=== PATIENT | male | born 1945 | race Caucasian/White ===

== ENCOUNTER 2021-03-30 10:56 | Emergency (ER) | payer MEDICARE, SELFPAY ==
--- NOTE | ~2021-03-30 | XR_ITS ---
EXAMINATION: XR SACROILIAC JOINTS CLINICAL INFORMATION: Left sacroiliac joint pain COMPARISON: None TECHNIQUE: 3 views of the sacroiliac joints FINDINGS: Bones and soft tissues are normal. No fracture. Alignment is anatomic. Sacroiliac joint spaces are well-maintained without erosions or surrounding sclerosis. There are degenerative changes of the lower lumbar spine. XR/XR sacroiliac joint 1-2V IMPRESSION: Normal sacroiliac joints. Degenerative changes of the lower lumbar spine.
[2021-03-30 11:14] VITALS: BP 145/83; PULSE 61; RESP 20; TEMP 36; O2SAT 97; BMI 35.4
--- NOTE | 2021-03-30 12:00 | ED.BACK ---
HPI - Back Pain/Injury General Chief Complaint: Back Pain/Injury Stated Complaint: Back pain Time Seen by Provider: 03/30/21 11:29 Source: patient and family Mode of arrival: ambulatory Limitations: no limitations History of Present Illness HPI Narrative: 76 years old male came in for evaluation of Lower back pain for 10 days. Patient been having left-sided lower back pain for about 10 days, pain is constant every day, pain is worsening as the day goes on, no radiation of the pain, pain is dull aching just localized to the left lower back area, patient declined any injuries to the back or falls. Related Data Previous Rx's Medication Instructions Recorded cyclobenzaprine 10 mg tablet 10 mg PO TID PRN #14 tab 03/30/21 ibuprofen 800 mg tablet 800 mg PO TID PRN #20 tab 03/30/21 Allergies Allergy/AdvReac Type Severity Reaction Status Date / Time No Known Allergies Allergy Verified 03/30/21 11:20 Review of Systems Review of Systems: All other systems are reviewed and are negative Constitutional: Reports as per HPI and Reports no additional constitutional complaints Eyes: Reports as per HPI and Reports no additional eye complaints Reports system reviewed and no additional complaints, except as documented Cardiovascular: Reports as per HPI and Reports no additional cardiovascular complaints Respiratory: Reports as per HPI and Reports no additional respiratory complaints Gastrointestinal: Reports as per HPI and Reports no additional gastrointestinal complaints Genitourinary: Reports no additional female genitourinary complaints Musculoskeletal: Reports no additional musculoskeletal complaints Skin/Breast: Reports system reviewed and no additional complaints, except as docu Psychiatric: Reports no additional psychiatric complaints Endocrine: Reports no additional endocrine complaints Hematologic/Lymphatic: Reports no additional hematologic/lymphatic complaints Allergic/Immunologic: Reports no additional allergic/immunologic complaints Reports system reviewed and no additional complaints, except as documented and Reports Abnormal speech present [facility] Past Medical History Medical History FH: total knee replacement High cholesterol Hypertension Social History Social History Advance Directives: Yes Advance Directives Information Provided: Yes Advance Directives on File: No Physical Exam Vital Signs: Vital Signs: Last Vital Signs Temp 96.8 F 03/30/21 11:14 Pulse 61 03/30/21 11:14 Resp 20 03/30/21 11:14 BP 145/83 H 03/30/21 11:14 Pulse Ox 97 03/30/21 11:14 Body Mass Index 35.4 Vital signs have been reviewed as appeared to be correct. Blood pressure normal. Heart rate normal. Respiration rate normal. Temperature normal. Oxygen saturation normal. Appearance: Alert. Oriented X3. No acute distress. Head: Normal external exam. Normocephalic. Atraumatic. No Peter signs noted. No raccoon eyes noted Eyes: PERRLA. EOMI. Conjunctiva and sclera normal. Eyelids normal. ENT: TM's Normal. Pharynx normal. Uvula midline. Moist mucous membranes. No trismus noted. No drooling noted. No muffled voice noted. Neck: Normal inspection. Neck supple. FROM. No adenopathy. Thyroid Normal. No meningeal signs. No neck mass noted. CVS: Normal heart rate and rhythm. Heart sound normal. No murmurs noted. Pulses normal throughout. Respiratory: No respiratory distress. Painless inspiration. Breath sounds normal. No wheezes/rales/rhonchi noted. Chest nontender. No accessory muscle usage noted or decreased air movement noted. Abdomen: Soft and nontender. Bowel sounds normal in all 4 quadrants. No distention noted. No organomegaly noted. No visible injury noted. Back: No CVA tenderness. Full range of motion noted. Tenderness over left sacroiliac joint, no step-off, no deformity. Skin: Skin warm and dry. Normal skin color. Normal skin turgor. No rashes/lesions/lacerations noted. Extremities: No lower extremity edema. Extremities exhibit normal range of motion. Extremities nontender. Neuro: Oriented X 3. Cranial nerve exam: II-XII are grossly intact No motor deficit. No sensory deficit. Reflexes normal. MDM - Back Pain/Injury MDM Narrative Medical decision making narrative: Assessment and plan. Sacroiliac joint sprain. Heating pads, rest, NSAIDs. Imaging Data Sacroiliac joint x-ray: Radiologist's impression: Normal sacroiliac joints. Degenerative changes of the lower lumbar spine. Discharge Plan Discharge Clinical Impression: Sacroiliac (ligament) sprain Qualifiers: Encounter type: initial encounter Qualified Code(s): S33.6XXA - Sprain of sacroiliac joint, initial encounter Patient Disposition: Home, Self-Care Instructions: Lower Back Exercises (ED) Prescriptions: New cyclobenzaprine 10 mg tablet 10 mg PO TID PRN (Reason: muscle spasm) Qty: 14 RF: 0 ibuprofen 800 mg tablet 800 mg PO TID PRN (Reason: pain) Qty: 20 RF: 0 Referrals: Anoop Kidd MD [Primary Care Provider] - 2 days
== END 2021-03-30 12:49 | disposition home or self-care (01) ==
PROVIDERS: Emergency Provider Emergency Medicine; PCP Internal Medicine
DX: S33.6XXA Sprain of sacroiliac joint, initial encounter (principal); M54.50 Low back pain, unspecified; X58.XXXA Exposure to other specified factors, initial encounter; Y93.9 Activity, unspecified; Y92.9 Unspecified place or not applicable; Y99.9 Unspecified external cause status
CPT/HCPCS: 72200; 99283

== ENCOUNTER 2021-04-02 14:17 | Emergency (ER) | payer MEDICARE, SELFPAY ==
[2021-04-02 14:33] VITALS: BP 131/61; PULSE 79; RESP 18; TEMP 37.1; O2SAT 95; BMI 35.4
--- NOTE | 2021-04-02 17:05 | ED_ITS ---
HPI - Back Pain/Injury General Chief Complaint: Back Pain/Injury Stated Complaint: low back & lt leg pain Time Seen by Provider: 04/02/21 17:04 Source: patient Limitations: no limitations History of Present Illness HPI Narrative: Patient presents to the ER with worsening back pain on the left side radiating down left leg. Pain is 10/10 no relief with Motrin and muscle relaxer recently prescribed to him. Patient denies any recent trauma to the back symptoms began approximately 1 week ago while getting into the car. Patient states pain radiates down left leg denies any loss of bowel movements or urine incontinence. Symptoms are severe to moderate. Pain increases with position change in range of motion. Patient has a history of hypertension hypercholesterolemia. Patient denies any history of diabetes. Related Data Previous Rx's Medication Instructions Recorded cyclobenzaprine 10 mg tablet 10 mg PO TID PRN #14 tab 03/30/21 ibuprofen 800 mg tablet 800 mg PO TID PRN #20 tab 03/30/21 oxycodone-acetaminophen 5 mg-325 1 tab PO TID PRN #14 tab 04/02/21 mg tablet (Percocet) prednisone 20 mg tablet 40 mg PO DAILY 5 Days #10 tab 04/02/21 Allergies Allergy/AdvReac Type Severity Reaction Status Date / Time No Known Allergies Allergy Verified 04/02/21 14:33 Review of Systems Constitutional: Constitutional: Denies chills and Denies fever(s) Cardiovascular: Cardiovascular: Denies chest pain, Denies lightheadedness and Denies dyspnea Respiratory: Respiratory: Denies dyspnea Gastrointestinal: Gastrointestinal: Denies nausea and Denies vomiting Genitourinary: Comments: No loss of bowel movements or urine incontinence Musculoskeletal: Musculoskeletal: Reports abnormal gait and Reports back pain Comments: Left leg pain Neurologic: Reports abnormal gait [facility] Past Medical History Medical History FH: total knee replacement High cholesterol Hypertension Social History Social History Advance Directives: No Advance Directives Information Provided: No Physical Exam Vital Signs: Vital Signs: Last Vital Signs Temp 98.7 F 04/02/21 14:33 Pulse 66 04/02/21 17:35 Resp 18 04/02/21 17:35 BP 144/72 H 04/02/21 17:35 Pulse Ox 99 04/02/21 17:35 Body Mass Index 35.4 vital signs have been reviewed as normal and appeared to be correct. Blood pressure normal. Heart rate normal. Respiration rate normal. Temperature normal. Oxygen saturation normal. Appearance: Alert. Oriented X3. No acute distress. Head: Normal external exam. Normocephalic. Atraumatic. Eyes: PERRLA. EOMI ENT: Pharynx normal. Uvula midline. Moist mucous membranes. Neck: Soft full range of motion, no JVD CVS: Heart regular rate and rhythm no murmurs and rubs Respiratory: Breath sounds are clear to auscultation bilaterally. No accessory muscle use noted. Back: Decreased range of motion positive paraspinous tenderness of the lumbar spine positive straight leg raise on the left. Skin: Skin warm and dry. Normal skin color. Normal skin turgor. No rashes/lesions/lacerations noted. Extremities: No lower extremity edema. Extremities exhibit normal range of motion. Extremities nontender. Neuro: Oriented X 3. No motor deficit. No sensory deficit. Reflexes normal. Course Course Course Narrative: Lumbar strain Disc herniation Left leg sciatica Spinal stenosis MassPat Reviewed no issues noted 8 mg morphine IM 60 mg prednisone p.o. 6:08 p.m. Marked improvement of pain. Plan to discharge patient home on steroid course in different analgesic patient understands close follow-up with PCP with possible physical therapy referral and/or outpatient MRI. Discharge Plan Discharge Clinical Impression: Sciatica Qualifiers: Laterality: left Qualified Code(s): M54.32 - Sciatica, left side Strain of lumbar region Qualifiers: Encounter type: subsequent encounter Qualified Code(s): S39.012D - Strain of muscle, fascia and tendon of lower back, subsequent encounter Patient Disposition: Home, Self-Care Instructions: Sciatica (ED), Acute Low Back Pain (ED) Prescriptions: New prednisone 20 mg tablet 40 mg PO DAILY 5 Days Qty: 10 RF: 0 oxycodone-acetaminophen [Percocet] 5-325 mg tablet 1 tab PO TID PRN (Reason: pain) Qty: 14 RF: 0 No Action cyclobenzaprine 10 mg tablet 10 mg PO TID PRN (Reason: muscle spasm) Qty: 14 RF: 0 ibuprofen 800 mg tablet 800 mg PO TID PRN (Reason: pain) Qty: 20 RF: 0
[2021-04-02] MEDS: Morphine Sulfate 10 MG/ML CARTRIDGE 8 MG IM (17:27)
[2021-04-02] MEDS: predniSONE 20 MG TABLET 60 MG PO (17:28)
[2021-04-02 17:35] VITALS: BP 144/72; PULSE 66; RESP 18; O2SAT 99
[2021-04-02 18:26] VITALS: BP 117/73; PULSE 80; RESP 16; O2SAT 99
== END 2021-04-02 18:42 | disposition home or self-care (01) ==
PROVIDERS: Emergency Provider Emergency Medicine; PCP Internal Medicine
DX: M54.32 Sciatica, left side (principal); S39.012D Strain of muscle, fascia and tendon of lower back, subsequent encounter; X58.XXXD Exposure to other specified factors, subsequent encounter; I10 Essential (primary) hypertension
CPT/HCPCS: 96372; 99284; J2270

== ENCOUNTER 2021-04-07 10:31 | Emergency (ER) | payer MEDICARE, SELFPAY ==
--- NOTE | ~2021-04-07 | CT_ITS ---
EXAMINATION: CT LUMBAR SPINE WITHOUT CONTRAST CLINICAL INFORMATION: Severe left lower back pain radiating to left anterior lateral leg COMPARISON: None TECHNIQUE: Axial images through the lumbar spine without contrast. Sagittal and coronal reconstructions on the technologist workstation were performed. This CT examination was performed using dose optimization techniques as appropriate, variously including the following: *Automated exposure control *Adjustment of mA and/or kV according to patient size (this includes techniques or standardized protocols for targeted exams where dose is matched to indication/reason for exam; i.e. extremities or head) *Use of iterative reconstruction technique DLP; 622 mGy-cm FINDINGS: There is curvature of the mid lumbar spine to the left. Bone alignment is otherwise normal. No fracture or dislocation is seen. Spinal levels: T12-L1: There is bilateral disc bulge. No disc herniation. There is facet arthritis. There is mild spinal stenosis due to disc bulge, short pedicles and facet arthritis. L1-L2: There is diffuse disc bulge. No disc herniation. There is a moderate spinal stenosis secondary to disc bulge, short pedicles and facet arthritis. L2-L3: There is diffuse disc bulge. No disc herniation. There is severe secondary spinal stenosis due to disc bulge, short pedicles and facet arthritis. L3-L4: There is diffuse disc bulge. No disc herniation. There is severe secondary spinal stenosis due to disc bulge, short pedicles and facet arthritis. L4-L5: There is diffuse disc bulge. No disc herniation. There is spinal stenosis due to disc bulge, short pedicles and facet arthritis. L5-S1: There is diffuse disc bulge. No disc herniation is seen. There is bilateral facet arthritis. No osseous spinal stenosis is seen. Paraspinal soft tissues are unremarkable. CT/CT lumbar spine wo con IMPRESSION: Multilevel degenerative disc disease with disc bulge and secondary spinal stenosis, most severe from L2-L3 to L4-L5.
[2021-04-07 12:06] VITALS: BP 160/74; PULSE 73; RESP 18; TEMP 36.1; O2SAT 96; BMI 35.4
--- NOTE | 2021-04-07 13:28 | ED_ITS ---
HPI - Back Pain/Injury General Chief Complaint: Back Pain/Injury Stated Complaint: lt leg pain Time Seen by Provider: 04/07/21 13:12 Source: patient Mode of arrival: ambulatory Limitations: no limitations History of Present Illness HPI Narrative: 76 y/o male presenting to the ER for the 3rd time this month with reports of severe, intermittent left-sided low back pain that radiates down his left leg. He reports that rest the pain is is 4 or 5/10 but when he walks or moves the wrong way the pain shoots to a 10/10. It starts in his left low back and radiates down the outside in front of his left leg. He reports not being able to put any weight on his left foot and having a very difficult time ambulating at home. He was seen here for the same on March 30 and April 02. He was diagnosed with sciatica and given pain control and prednisone with brief improvement. He was told to follow-up with his primary care doctor. There does primary care doctor today who states because he did not have the re cords from the emergency room he was unable to help him. He told the come back to the ER for further evaluation an additional imaging. Patient denies any urinary or bowel incontinence. He denies any numbness, weakness, tingling, saddle paresthesieas. MD elicited complaint: back pain and back injury Pertinent past history: prior back pain Onset (ago): week(s) (2) Timing: intermittent Severity: severe Pain scale (0-10): 10 Quality: stabbing and throbbing Location: left lower back Radiation: left upper leg Exacerbating factors: movement and walking Relieving factors: immobilization and sitting upright Context: unknown Associated symptoms: difficulty walking Work related injury: No Related Data Previous Rx's Medication Instructions Recorded cyclobenzaprine 10 mg tablet 10 mg PO TID PRN #14 tab 03/30/21 ibuprofen 800 mg tablet 800 mg PO TID PRN #20 tab 03/30/21 oxycodone-acetaminophen 5 mg-325 1 tab PO TID PRN #14 tab 04/02/21 mg tablet (Percocet) prednisone 20 mg tablet 40 mg PO DAILY 5 Days #10 tab 04/02/21 cyclobenzaprine 5 mg tablet 5 mg PO TID PRN #14 tab 04/07/21 hydromorphone 2 mg tablet 2 mg PO Q4-6H PRN #10 tab 04/07/21 (Dilaudid) ibuprofen 600 mg tablet 600 mg PO Q8H PRN #20 tab 04/07/21 lidocaine 5 % topical patch 1 patch TOPICAL DAILY #15 ea 04/07/21 Allergies Allergy/AdvReac Type Severity Reaction Status Date / Time No Known Allergies Allergy Verified 04/02/21 14:33 Review of Systems Review of Systems: Constitutional: No Fever, No Chills ENT/Mouth: No sore throat, No Rhinorrhea, No Swallowing Difficulty Cardiovascular: No Chest Pain, No SOB Gastrointestinal: No Nausea, No Vomiting, No Diarrhea, No abdominal Pain Genitourinary: No Dysuria, No Urinary Frequency, No Hematuria Musculoskeletal: + joint pain, + Myalgias Skin: No Skin Lesions, No rash Neuro: No Weakness, No Numbness, No Dizziness, No Headache Psych: No Anxiety/Panic, No Depression Heme/Lymph: No Bruising, No Lymphadenopathy Endocrine: No Polyuria, No Polydipsia PMFSH Past Medical History Medical History FH: total knee replacement High cholesterol Hypertension Social History Social History Advance Directives: No Advance Directives Information Provided: No Physical Exam Vital Signs: Vital Signs: Last Vital Signs Temp 97.6 F 04/07/21 15:57 Pulse 58 04/07/21 15:57 Resp 16 04/07/21 15:57 BP 123/76 04/07/21 15:57 Pulse Ox 97 04/07/21 15:57 Body Mass Index 35.4 Appearance: Alert. Oriented X3. No acute distress. HEENT: Normal external inspection Neck: Normal inspection. Neck supple. No midline tenderness. Normal range of motion CVS: Normal heart rate and rhythm. Pulses normal. Respiratory: No respiratory distress. Breath sounds normal. Abdomen: Soft and nontender. +BS x4 Back: normal inspection. Left low lumbar area with soft tissue tenderness and spasm, positive SI joint tenderness. Positive straight leg raise on the right. Mild low lumbar spinal tenderness. Limited range of motion of the spine due to pain. Skin: Skin warm and dry. Normal skin color. Normal skin turgor. No rashes. Extremities: No lower extremity edema. Normal ROM of the knees and hips. Neuro: Oriented X 3. No motor deficit. No sensory deficit. Ambulates with slow but steady gait. Course Course Course Narrative: 76-year-old male presenting to the ER for evaluation of left low back pain that radiates down his left leg. This is his 3rd ER visit in 2 weeks. He reports his only incident of injury was getting into the car awkwardly a few weeks ago. Pain started shortly after this. Pain is worse with palpation ambulation. Pain is debilitating and not allowing him to perform his activities of daily living, walking is very difficult. He ran out of pain medications and today is his last dose of prednisone. Pain is not worsening it is just persisted. At this time there is no evidence of cauda equina syndrome. No red flag symptoms of low back pain. Will medicate with IM Dilaudid and get a CT scan of the lower back for further evaluation. No indication for emergent MRI at this time. Reevaluation(s) Reevaluation #1: Pain is improved after IM Dilaudid. He went to CT scan and came back with exacerbation of the pain after lying completely flat for the test. Will give a dose of Motrin and Flexeril to see if this improves the pain. He appears comfortable. He ambulated to the bathroom and urinalysis was normal. Reevaluation #2: CT showing multilevel degenerative disc disease with disc bulge and secondary spinal stenosis most severe from L2-L3-L4-L5. Results were discussed with the patient his at the bedside. They will follow-up with the primary care doctor for referral to a neurosurgeon. They are also interested in physical therapy. They will follow-up with the primary care doctor tomorrow. Will prescribe oral Dilaudid given his good response here in the emergency department. Will give a short course. He understands he needs to follow up for ongoing treatment and management. We discussed possibility of admission for pain control however he is declining and wishes to go home. Comfortable with discharge home. MDM - Back Pain/Injury Lab Data Labs: Lab Results 04/07/21 Range/Units 14:13 Urine Color YELLOW Urine Appearance CLEAR Urine pH 6.5 (5.0-8.0) Ur Specific [place] <= 1.005 (1.005-1.025) Urine Protein NEG (NEG-TRACE) MG/DL Urine Glucose (UA) NEG (NEG) MG/DL Urine Ketones NEG (NEG) MG/DL Urine Blood NEG (NEG) Urine Nitrite NEG (NEG) Ur Leukocyte Esterase NEG (NEG) Discharge Plan Discharge Clinical Impression: Herniated intervertebral disc of lumbar spine Patient Disposition: Home, Self-Care Instructions: Lumbar Disc Herniation (ED), Lower Back Exercises (ED) Additional Instructions: Your CT scan showed multi level disc bulging in your lower back. No bending, lifting or twisting. Use ice several times per day for 20 minutes at a time for the next 48 hours and then change to heat. Take medications as prescribed to help with pain and discomfort. Follow up with your Primary Care Doctor this week. If your pain worsens, if you develop new numbness, tingling, weakness, loss of function or incontinence call 911 or come back to the ER right away for evaluation. Prescriptions: New hydromorphone [Dilaudid] 2 mg tablet 2 mg PO Q4-6H PRN (Reason: pain) Qty: 10 RF: 0 cyclobenzaprine 5 mg tablet 5 mg PO TID PRN (Reason: muscle spasm) Qty: 14 RF: 0 lidocaine 5 % adhesive patch,medicated 1 patch topical DAILY Qty: 15 RF: 0 ibuprofen 600 mg tablet 600 mg PO Q8H PRN (Reason: pain) Qty: 20 RF: 0 No Action prednisone 20 mg tablet 40 mg PO DAILY 5 Days Qty: 10 RF: 0 oxycodone-acetaminophen [Percocet] 5-325 mg tablet 1 tab PO TID PRN (Reason: pain) Qty: 14 RF: 0 cyclobenzaprine 10 mg tablet 10 mg PO TID PRN (Reason: muscle spasm) Qty: 14 RF: 0 ibuprofen 800 mg tablet 800 mg PO TID PRN (Reason: pain) Qty: 20 RF: 0 Referrals: Mary Garzon MD [Physician] - 1 week (Multilevel lumbar disc bulge with spinal stenosis) Interventions: ED Discharge Assessment Last Done: 04/07/21 17:08 Discharge Date/Time: 04/07/21 17:09
[2021-04-07 13:58] VITALS: RESP 16
[2021-04-07] MEDS: HYDROmorphone HCl 1 MG/ML SYRINGE IM (13:58)
[2021-04-07 14:13] VITALS: BP 139/88; PULSE 68; RESP 16; O2SAT 98
[2021-04-07 14:22] LABS: Appearance Urine CLEAR; Color Urine YELLOW; Glucose Urine UA NEG (NEG); Leukocyte Esterase Urine NEG (NEG); Nitrite Urine NEG (NEG); PH 6.5 (5.0-8.0); Specific Gravity - Urine <= 1.005 (1.005-1.025); Urine Blood NEG (NEG); Urine Ketones NEG (NEG); Urine Protein NEG (NEG-TRACE)
[2021-04-07] MEDS: Ibuprofen 600 MG TABLET PO (15:20)
[2021-04-07] MEDS: Cyclobenzaprine HCl 10 MG TABLET PO (15:21)
[2021-04-07 15:57] VITALS: BP 123/76; PULSE 58; RESP 16; TEMP 36.4; O2SAT 97
== END 2021-04-07 17:09 | disposition home or self-care (01) ==
PROVIDERS: Physician Assistant; Emergency Provider Emergency Medicine; PCP Internal Medicine
DX: M51.26 Other intervertebral disc displacement, lumbar region (principal); Z79.899 Other long term (current) drug therapy
CPT/HCPCS: 72131; 81003; 96372; 99284; J1170

== ENCOUNTER 2021-10-22 09:00 | Outpatient (RCR) | payer MEDICARE, SELFPAY | END 2021-10-22 09:59 | disposition home or self-care (01) | LOC: HO.PTCHIC 09:00 | PROVIDERS: PCP Internal Medicine; Visit Provider Anesthesiology | DX: M54.16 Radiculopathy, lumbar region (principal) | CPT/HCPCS: 97110; 97162; 97530 ==